=== PATIENT | female | born 1975 | race Caucasian/White ===

== ENCOUNTER 2016-07-06 14:18 | Emergency (ER) | payer BC ==
--- NOTE | 2016-07-09 00:34 | ER ---
ADMIT: 07/06/2016 RM/LOC: [facility] MR#: [id number] [address] [id number] [place] [place] [address] [place] [address] Emergency Room Report SEX: F AGE: 41 : 1975 DATE: 07/06/2016 BRIEF ADDENDUM: Please see my T-sheet for complete review of systems, past medical history, and physical exam. CHIEF COMPLAINT: Left leg pain and swelling. HISTORY OF PRESENT ILLNESS: Pleasant 41-year-old female who comes to us after concerns for DVT at [facility] just prior to arrival. The patient states she did sustain an injury to her calf where she kind of felt a pop on the 13 of June. She was seen at [facility] originally, placed in a boot, diagnosed with a calf strain, to follow up with Dr. Stephens. She did follow up with family practice resident Dr. Hawkins, who agreed with the diagnosis, encouraged her to continue to use naproxen as needed for pain and remain in the boot until this Thursday. She states she has been actually improving with the pain in her calf, however, starting yesterday, she had increased pain, swelling, and some paresthesia in her left leg. She describes the pain as an ache, admits to some left-sided low back pain. Denies any chest pain, shortness of breath, or palpitations. Pain is worse with walking. Improved if she remains still. COURSE IN THE EMERGENCY ROOM: The patient was seen and examined. She is afebrile and nontoxic. She is in no acute distress. The left extremity is swollen compared to the right. There is mild erythema. She does have some mild tenderness to palpation of the calf primarily over the lateral aspect. Homans' sign is negative distally. Pulses are 2+ bilaterally. Cap refill is less than 2 seconds. Sensation is intact. Did get a Doppler study of the left extremity significant for nonocclusive DVT of the common femoral extending into the distal popliteal. I did phone Dr. Parker, who is on-call for Family Practice today, ran the patient by him, who agreed with the treatment plan of starting Xarelto with followup with Dr. Stephens later this week. IMPRESSION: Left common femoral nonocclusive deep venous thrombosis. DISPOSITION: The patient was discharged on Xarelto 15 mg p.o. b.i.d. x19 ADMIT: 07/06/2016 RM/LOC: [facility] MR#: [id number] [address] [place] [id number] [place] [place] [address] [place] [address] Emergency Room Report SEX: F AGE: 41 : 1975 days. She is to follow up with Dr. Stephens this week. Certainly, return with any worsening signs and symptoms such as shortness of breath, chest pain, or increasing pain and swelling in that left leg. Did have a thorough discussion with her involving the risks and benefits of blood thinners as well as the decision to use the newer agents versus Coumadin and warfarin. She is to discontinue use of the boot. Ambulate as tolerated. I told her to avoid any aggressive activity. I did think much of her low back pain was secondary to being in the boot as she was somewhat altering her gait pattern secondary to the boot. She is to continue using naproxen and Tylenol as needed for pain. Elevate the extremity when not ambulating. Questions sought and answered to the best of my ability and to the patient's satisfaction. Discharged in stable condition. KENRICK Guerrero / Kenny Pan MD / lou JOB #: [id number] CC: Kenny Pan MD, Attending Physician Hammad Stephens MD, Family Physician
== END 2016-07-06 16:30 | disposition home or self-care (01) ==
LOC: ER 14:18
DX: I82.412 Acute embolism and thrombosis of left femoral vein (principal); Z79.899 Other long term (current) drug therapy